=== PATIENT | male | born 1960 | race Caucasian/White ===

== ENCOUNTER → 2017-07-09 | Outpatient (CLI) | payer OTHER ==
[~2017-07-09] MED LIST: ARTIOIN OP; ASPI325T45 PO; CYCL10TA6 PO; LABE100T16 PO; LOSA1TAB38 PO; PRED10TA PO; VALA1TAB PO
[2017-07-09 11:55] LABS: MEAN CELL VOLUME 88.1 fL (80-100); MEAN CORPUSCULAR HEMOGLOBIN 33.3 pg (25-34); MEAN CORPUSCULAR HGB CONC 37.8 g/dl (32-36); MEAN PLATELET VOLUME 9.9 fL (7.4-10.4); PLATELET COUNT 195 K/uL (130-400); RED BLOOD COUNT 4.54 M/uL (4.7-6.1); WHITE BLOOD COUNT 7.29 K/uL (4.8-10.8)
[2017-07-09 12:22] LABS: BLOOD UREA NITROGEN 20 mg/dl (7-18); BUN/CREATININE RATIO 18.6 (10-20); CALCIUM 8.5 mg/dl (8.5-10.1); CARBON DIOXIDE 28 mmol/L (21-32); CHLORIDE 102 mmol/L (98-107); GLUCOSE 118 mg/dl (70-99); POTASSIUM 3.5 mmol/L (3.5-5.1); SODIUM 137 mmol/L (136-145)
[2017-07-09 12:23] LABS: ESTIMATED AVERAGE GLUCOSE 105 mg/dl; HA1C FLAG Normal (Normal)
[2017-07-09 12:25] LABS: CHOLESTEROL 177 mg/dl (0-200); CHOLESTEROL/HDL RATIO 4.5; HDL CHOLESTEROL 39 mg/dl; LDL CHOLESTEROL CALCULATED 93 mg/dl; TRIGLYCERIDES 224 mg/dl (0-150); VERY LOW DENSITY LIPOPROT CALC 45 mg/dl
== END | disposition home or self-care (01) ==
LOC: C.LABPBG 08:55
PROVIDERS: ATTEND Family Medicine
DX: I10 Essential (primary) hypertension (principal); Z13.220 Encounter for screening for lipoid disorders; Z11.59 Encounter for screening for other viral diseases; Z13.1 Encounter for screening for diabetes mellitus

== ENCOUNTER → 2017-07-21 | Outpatient (CLI) | payer OTHER ==
[2017-07-21 13:19] LABS: THYROID STIMULATING HORMONE 2.8 uIu/ml (0.300-4.500)
[2017-07-22 14:13] LABS: MICROSOMAL AB 8 IU/ML (<9)
== END | disposition home or self-care (01) ==
LOC: C.LABPBG 10:12
PROVIDERS: ATTEND Family Medicine
DX: R94.6 Abnormal results of thyroid function studies (principal)

== ENCOUNTER → 2017-10-21 | Outpatient (CLI) | payer OTHER ==
[2017-10-21 13:55] LABS: BLOOD UREA NITROGEN 14 mg/dl (7-18); CALCIUM 9.2 mg/dl (8.5-10.1); CARBON DIOXIDE 30 mmol/L (21-32); CHOLESTEROL 205 mg/dl (0-200); CREATININE 1.14 mg/dl (0.60-1.40); GLUCOSE 114 mg/dl (70-99); POTASSIUM 3.6 mmol/L (3.5-5.1); SODIUM 137 mmol/L (136-145)
[2017-10-21 14:06] LABS: LDL CHOLESTEROL CALCULATED 123 mg/dl
== END | disposition home or self-care (01) ==
LOC: C.LABPBG 10:41
PROVIDERS: ATTEND Family Medicine
DX: R94.6 Abnormal results of thyroid function studies (principal); E78.5 Hyperlipidemia, unspecified; I10 Essential (primary) hypertension

== ENCOUNTER 2017-11-18 17:15 | Emergency (ER) | payer OTHER ==
[~2017-11-18] VITALS: Ht 188 cm; Wt 125.1 kg
[~2017-11-18 17:15] MED LIST changes: -ASPI325T45 PO
[2017-11-18 17:22] VITALS: Ht 188 cm; Wt 125.1 kg
[2017-11-18] MEDS ORDERED: ACETAMINOPHEN 500 MG TAB PO STA (17:47)
[2017-11-18] MEDS ORDERED: SODIUM CHLORIDE 0.9% 1000ML 1,000 ML IV STA ×2 (17:47→19:57)
[2017-11-18] MEDS ORDERED: KETOROLAC TROMETHAMINE 30 MG/ML VIAL IV STA (17:47)
--- NOTE | 2017-11-18 18:17 | DIAGNOSTIC IMAGING REPORT ---
SINGLE VIEW CHEST CLINICAL HISTORY: Cough and fever. FINDINGS: An AP, portable, upright chest radiograph is compared to study dated 12/29/2006 and correlated with chest CT dated 02/15/2011. The cardiomediastinal silhouette is unremarkable. There is mild chronic elevation of the right hemidiaphragm with associated bibasilar atelectasis. The lungs and pleural spaces are otherwise clear. No pneumothorax is seen. The bony thorax is grossly intact. IMPRESSION: No acute cardiopulmonary abnormality. Electronically signed by: Sudheer Slater M.D. 11/18/2017 6:15 PM Dictated Date/Time: 11/18/2017 6:07 PM
[2017-11-18] MEDS ORDERED: LEVO50TA6 PO (18:23)
[2017-11-18] MEDS ORDERED: HYZ/10015 PO (18:23)
[2017-11-18] MEDS ORDERED: LBT100 PO (18:23)
[2017-11-18] MEDS ORDERED: FLX10 PO (18:23)
[2017-11-18 18:43] LABS: BASO % 0.4 %; BASO ABS # 0.03 K/uL (0-0.2); EOS % 0.6 %; EOS ABS # 0.05 K/uL (0-0.5); HEMATOCRIT 40.5 % (42-52); IG# 0.03 K/uL (0.00-0.02); LYMPH % 8.7 %; LYMPH ABS # 0.72 K/uL (1.2-3.4); MEAN CELL VOLUME 88.4 fL (80-100); MEAN CORPUSCULAR HEMOGLOBIN 32.8 pg (25-34); MEAN PLATELET VOLUME 9.3 fL (7.4-10.4); MONO ABS # 0.75 K/uL (0.11-0.59); NEUT % 80.9 %; NEUT ABS # 6.72 K/uL (1.4-6.5); PLATELET COUNT 172 K/uL (130-400); RED CELL DISTRIBUTION WIDTH CV 12.8 % (11.5-14.5); RED CELL DISTRIBUTION WIDTH SD 40.7 fL (36.4-46.3)
[2017-11-18 19:06] LABS: ALBUMIN 3.9 gm/dl (3.4-5.0); ALT/SGPT 38 U/L (12-78); AST/SGOT 25 U/L (15-37); BLOOD UREA NITROGEN 15 mg/dl (7-18); CALCIUM 8.6 mg/dl (8.5-10.1); CARBON DIOXIDE 29 mmol/L (21-32); CREATININE 1.36 mg/dl (0.60-1.40); GLUCOSE 118 mg/dl (70-99); POTASSIUM 3.4 mmol/L (3.5-5.1); SODIUM 135 mmol/L (136-145)
[2017-11-18 19:10] LABS: ALKALINE PHOSPHATASE 107 U/L (45-117); TOTAL PROTEIN 7.3 gm/dl (6.4-8.2)
[2017-11-18 19:24] LABS: INFLUENZA B ANTIGEN Neg for Influ B (NEG)
[2017-11-18 19:52] VITALS: TEMP 37.9
[2017-11-18] MEDS ORDERED: OSELTAMIVIR PHOSPHATE 75 MG CAP PO STA (19:57)
[2017-11-18 20:53] VITALS: BP 121/68; PULSE 80; O2SAT 95
[2017-11-18] MEDS ORDERED: HYCODAN 60ML BOTTLE HOMEPACK PO ONE (21:00)
[2017-11-18] MEDS ORDERED: OSEL75CA12 PO (21:01)
[2017-11-18] MEDS ORDERED: HYDR5SYP11 PO (21:01)
--- NOTE | 2017-11-18 21:04 | EMERGENCY ROOM VISIT NOTE ---
History First contact with patient: 17:29 Chief Complaint: FLU LIKE SX Stated Complaint: FLU History of Present Illness The patient is a 57 year old male who presents to the Emergency Room with complaints of flulike symptoms. The patient states that he has had sore throat , weakness, nausea, decreased appetite, cough, and bodyaches for the past 4-5 days. The patient reports he has been having sharp pains in his head when he is coughing. He has been slightly dizzy when standing up. He has been taking ibuprofen, Tylenol, pepto-bismol and Robitussin without relief. The patient has not taken any medications since this morning. He rates his discomfort a 1/ 10. He feels he has been eating and drinking normally. He denies nausea/ vomiting, diarrhea, neck pain/stiffness. Review of Systems A complete 10 point review of systems was reviewed with the patient with pertinent positives and negatives as per history of present illness. All else were negative. Past Medical/Surgical History Medical Problems: (1) Sutherland's palsy (2) Hypertension Surgical Problems: (1) Hx of cholecystectomy Family History FH: heart disease FHx: cancer Hypertension Social History Smoking Status: Never Smoker Marital Status: Housing Status: lives with family Occupation Status: retired Current/Historical Medications Scheduled Aspirin (Aspirin), 325 MG PO DAILY Hctz/Losartan (Hyzaar 25MG/100MG), 1 TAB PO DAILY Hydrocodone W/ Homatropine (Hycodan 5/1.5MG 5 Ml), 5 ML PO Q4H Labetalol HCl (Labetalol HCl), 100 MG PO BID Levothyroxine Sodium (Levothyroxine Sodium), 50 MCG PO DAILY Oseltamivir (Tamiflu), 75 MG PO BID Scheduled PRN Cyclobenzaprine HCl (Cyclobenzaprine HCl), 10 MG PO TID PRN for Muscle Spasm Physical Exam Vital Signs Date Time Temp Pulse Resp B/P (MAP) Pulse Ox O2 Delivery O2 Flow Rate FiO2 11/18/17 20:53 80 19 121/68 95 Room Air 11/18/17 19:52 37.9 86 18 95/61 95 Room Air 11/18/17 17:22 39.1 109 20 106/70 95 Room Air Physical Exam VITALS: Vitals are noted on the nurse's note and reviewed by myself. Vital signs stable. GENERAL: This is a 57-year-old, in no acute distress but uncomfortable appearing , nondiaphoretic, well-developed well-nourished. SKIN: The skin was without rashes. EARS: External auditory canals clear, tympanic membranes pearly brock without erythema or effusion bilaterally. EYES: Pupils equal round and reactive to light and accommodation. MOUTH: Mucous membranes moist. Tonsils are not enlarged. Pharynx without erythema or exudate. NECK: Supple without nuchal rigidity. No lymphadenopathy. No meningismus. HEART: Regular rate and rhythm without murmurs gallops or rubs. LUNGS: Clear to auscultation bilaterally without wheezes, rales or rhonchi. No retractions or accessory muscle use. ABDOMEN: Positive bowel sounds x 4. Soft, nontender to palpation. NEURO: Patient was alert and oriented to person place and time. Medical Decision & Procedures ER Provider Diagnostic Interpretation: SINGLE VIEW CHEST CLINICAL HISTORY: Cough and fever. FINDINGS: An AP, portable, upright chest radiograph is compared to study dated 12/29/2006 and correlated with chest CT dated 02/15/2011. The cardiomediastinal silhouette is unremarkable. There is mild chronic elevation of the right hemidiaphragm with associated bibasilar atelectasis. The lungs and pleural spaces are otherwise clear. No pneumothorax is seen. The bony thorax is grossly intact. IMPRESSION: No acute cardiopulmonary abnormality. Laboratory Results 11/18/17 18:04 Red Blood Count 4.58, Mean Corpuscular Volume 88.4, Mean Corpuscular Hemoglobin 32.8, Mean Corpuscular Hemoglobin Concent 37.0, Mean Platelet Volume 9.3, Neutrophils (%) (Auto) 80.9, Lymphocytes (%) (Auto) 8.7, Monocytes (%) (Auto) 9.0, Eosinophils (%) (Auto) 0.6, Basophils (%) (Auto) 0.4, Neutrophils # (Auto) 6.72, Lymphocytes # (Auto) 0.72, Monocytes # (Auto) 0.75, Eosinophils # (Auto) 0.05, Basophils # (Auto) 0.03 11/18/17 18:04 Test 11/18/17 17:55 11/18/17 18:04 Influenza Type A Antigen Neg for Influ A (NEG) Influenza Type B Antigen Neg for Influ B (NEG) White Blood Count 8.30 K/uL (4.8-10.8) Red Blood Count 4.58 M/uL (4.7-6.1) Hemoglobin 15.0 g/dL (14.0-18.0) Hematocrit 40.5 % (42-52) Mean Corpuscular Volume 88.4 fL (80-100) Mean Corpuscular Hemoglobin 32.8 pg (25-34) Mean Corpuscular Hemoglobin Concent 37.0 g/dl (32-36) Platelet Count 172 K/uL (130-400) Mean Platelet Volume 9.3 fL (7.4-10.4) Neutrophils (%) (Auto) 80.9 % Lymphocytes (%) (Auto) 8.7 % Monocytes (%) (Auto) 9.0 % Eosinophils (%) (Auto) 0.6 % Basophils (%) (Auto) 0.4 % Neutrophils # (Auto) 6.72 K/uL (1.4-6.5) Lymphocytes # (Auto) 0.72 K/uL (1.2-3.4) Monocytes # (Auto) 0.75 K/uL (0.11-0.59) Eosinophils # (Auto) 0.05 K/uL (0-0.5) Basophils # (Auto) 0.03 K/uL (0-0.2) RDW Standard Deviation 40.7 fL (36.4-46.3) RDW Coefficient of Variation 12.8 % (11.5-14.5) Immature Granulocyte % (Auto) 0.4 % Immature Granulocyte # (Auto) 0.03 K/uL (0.00-0.02) Anion Gap 8.0 mmol/L (3-11) Est Creatinine Clear Calc Drug Dose 86.3 ml/min Estimated GFR () 67.4 Estimated GFR (Non- 58.2 BUN/Creatinine Ratio 11.3 (10-20) Calcium Level 8.6 mg/dl (8.5-10.1) Total Bilirubin 1.4 mg/dl (0.2-1) Aspartate Amino Transf (AST/SGOT) 25 U/L (15-37) Alanine Aminotransferase (ALT/SGPT) 38 U/L (12-78) Alkaline Phosphatase 107 U/L (45-117) Troponin I < 0.015 ng/ml (0-0.045) Total Protein 7.3 gm/dl (6.4-8.2) Albumin 3.9 gm/dl (3.4-5.0) Globulin 3.4 gm/dl (2.5-4.0) Albumin/Globulin Ratio 1.1 (0.9-2) Medications Administered Medications (Trade) Dose Ordered Sig/Cruz Route Start Time Stop Time Status Last Admin Dose Admin Sodium Chloride 1,000 ml @ 999 mls/hr Q1H1M STAT IV 11/18/17 17:47 11/18/17 18:47 DC 11/18/17 18:15 999 MLS/HR Ketorolac Tromethamine (Toradol Inj) 30 mg NOW STAT IV 11/18/17 17:47 11/18/17 17:51 DC 11/18/17 18:15 30 MG Acetaminophen (Tylenol Tab) 1,000 mg NOW STAT PO 11/18/17 17:47 11/18/17 17:51 DC 11/18/17 18:15 1,000 MG Sodium Chloride 1,000 ml @ 999 mls/hr Q1H1M STAT IV 11/18/17 19:57 11/18/17 20:57 DC 11/18/17 19:55 999 MLS/HR Oseltamivir Phosphate (Tamiflu Cap) 75 mg NOW STAT PO 11/18/17 19:57 11/18/17 19:58 DC 11/18/17 20:10 75 MG Hydrocodone Bit/ Homatropine Methylb (Hycodan Elix Homepack 5/1.5MG/ 5ML) 1 homepack UD ONCE PO 11/18/17 21:00 11/18/17 21:01 DC 11/18/17 21:00 1 HOMEPACK Medical Decision Differential diagnosis includes influenza, pneumonia, viral illness, strep pharyngitis, mononucleosis, among others. The patient is a 57-year-old male who presents today complaining of flulike symptoms. Labs revealed no leukocytosis, anemia or concerning electrolyte abnormalities. Chest x-ray showed no evidence of pneumonia. Rapid influenza testing was negative, however with clinical symptoms and prevalence in the community, I did offer the patient prescription of Tamiflu which he accepted. He was treated with Tylenol, Toradol and 2 L normal saline solution with improvement of vital signs and symptomatic improvement. Plan of care was discussed with the patient and . He will follow-up with the primary care provider as needed or return here for any worsening or new/concerning symptoms. Based on the patient's presentation and work up, I feel the patient is stable for outpatient treatment. The patient was educated to return to the emergency department for any worsening of their current condition or new/concerning symptoms. He will follow up with his PCP. Medication Reconcilliation Current Medication List: was personally reviewed by me Blood Pressure Screening Patient's blood pressure: Normal blood pressure Impression Primary Impression: Influenza-like symptoms Departure Information Dispostion Home / Self-Care Condition GOOD Prescriptions Hydrocodone W/ Homatropine (HYCODAN 5/1.5MG 5 ML) 1 Syp Syp 5 ML PO Q4H, #60 ML Prov: Belkis Mendoza PA-C 11/18/17 Oseltamivir (Tamiflu) 75 Mg Cap 75 MG PO BID for 5 Days, #9 CAP Prov: Belkis Mendoza PA-C 11/18/17 Referrals Karime Hwang DO (PCP) Patient Instructions My [facility] Additional Instructions Tamiflu as prescribed. Hycodan cough syrup as needed for severe cough. This is a narcotic medication and may make you drowsy. Do not drink or drive while taking this medication. For pain/fever control, you can use the following [id number] medicines ( if >12 yo): - Regular strength (325mg/tab) Tylenol (acetaminophen) 2 tabs every 4-6 hours as needed. Do not exceed 12 tablets in a 24 hour period. Avoid taking more than 4 grams (4000 mg) of Tylenol per day. This includes any other sources of acetaminophen you may take on a regular basis. - Regular strength (200 mg/tab) Advil (ibuprofen) 3-4 tabs every 4-6 hours as needed. Do not exceed a dose of 3200 mg per day. Rest and drink plenty of fluids. Follow-up with your primary care provider this week for a recheck. Return to the emergency department with any worsening or new/concerning symptoms.
[2017-11-18] MEDS ORDERED: ASPI325T45 PO (22:33)
== END 2017-11-18 21:11 | disposition home or self-care (01) ==
LOC: C.EDB 17:17
DX: J02.9 Acute pharyngitis, unspecified (principal); R53.1 Weakness; R11.0 Nausea; R63.0 Anorexia; R05 Cough; R42 Dizziness and giddiness; G51.0 Bell's palsy; I10 Essential (primary) hypertension; Z90.49 Acquired absence of other specified parts of digestive tract; Z80.9 Family history of malignant neoplasm, unspecified; Z82.49 Family history of ischemic heart disease and other diseases of the circulatory system; Z79.82 Long term (current) use of aspirin; Z79.899 Other long term (current) drug therapy

== ENCOUNTER 2017-11-23 12:27 | Emergency (ER) | payer OTHER ==
[~2017-11-23] VITALS: Ht 188 cm; Wt 122.6 kg
[~2017-11-23 12:27] MED LIST changes: -ARTIOIN OP; +ASPI325T45 PO; -CYCL10TA6 PO; +FLX10 PO; +HYDR5SYP11 PO; +HYZ/10015 PO; -LABE100T16 PO; +LBT100 PO; +LEVO50TA6 PO; -LOSA1TAB38 PO; +OSEL75CA12 PO; -PRED10TA PO; -VALA1TAB PO
[2017-11-23 12:30] VITALS: TEMP 37.5; Ht 188 cm; Wt 122.6 kg
[2017-11-23] MEDS ORDERED: ALBUT/IPRATROP 3MG/0.5MG NEB 3 ML VIAL INH STA (13:01)
[2017-11-23] MEDS ORDERED: LORAZEPAM 2 MG/ML 1 ML VIAL IV STA (13:05)
[2017-11-23 13:11] LABS: BASO % 0.2 %; BASO ABS # 0.02 K/uL (0-0.2); EOS % 0.7 %; EOS ABS # 0.09 K/uL (0-0.5); HEMOGLOBIN 14.4 g/dL (14.0-18.0); IG# 0.05 K/uL (0.00-0.02); LYMPH % 7.3 %; MEAN CELL VOLUME 88.8 fL (80-100); MEAN CORPUSCULAR HEMOGLOBIN 33.6 pg (25-34); MEAN CORPUSCULAR HGB CONC 37.9 g/dl (32-36); MEAN PLATELET VOLUME 9.4 fL (7.4-10.4); MONO % 9.6 %; MONO ABS # 1.19 K/uL (0.11-0.59); NEUT % 81.8 %; NEUT ABS # 10.16 K/uL (1.4-6.5); PLATELET COUNT 210 K/uL (130-400); RED CELL DISTRIBUTION WIDTH CV 12.4 % (11.5-14.5); RED CELL DISTRIBUTION WIDTH SD 39.7 fL (36.4-46.3); WHITE BLOOD COUNT 12.41 K/uL (4.8-10.8)
[2017-11-23 13:20] LABS: CALCIUM 8.8 mg/dl (8.5-10.1); CREATININE 1.25 mg/dl (0.60-1.40); POTASSIUM 3.5 mmol/L (3.5-5.1)
--- NOTE | 2017-11-23 13:51 | DIAGNOSTIC IMAGING REPORT ---
CHEST 2 VIEWS ROUTINE CLINICAL HISTORY: Cough and shortness of breath COMPARISON STUDY: The 2017 FINDINGS: The cardiac and mediastinal contours are normal. There is no evidence of focal pulmonary consolidation. There is no evidence of failure. No pleural effusions are visualized.[ IMPRESSION: No active disease in the chest. Electronically signed by: Alo Thao M.D. 11/23/2017 1:50 PM Dictated Date/Time: 11/23/2017 1:49 PM
--- NOTE | 2017-11-23 14:24 | EMERGENCY ROOM VISIT NOTE ---
ED Visit Note First contact with patient: 12:51 The patient was seen and examined with Alis Mendosa [facility]. I agree with the history, physical and findings. Please see the note for disposition and details.
[2017-11-23] MEDS ORDERED: ACET-1256 PO (14:59)
[2017-11-23] MEDS ORDERED: PSEU30TA3 PO (14:59)
[2017-11-23] MEDS ORDERED: ALBINS/ INH (15:17)
[2017-11-23] MEDS ORDERED: AZITTAB PO (15:17)
[2017-11-23] MEDS ORDERED: METH4PAK PO (15:17)
--- NOTE | 2017-11-23 15:18 | EMERGENCY ROOM VISIT NOTE ---
History First contact with patient: 12:51 Chief Complaint: SHORTNESS OF BREATH Stated Complaint: CANT BREATH,WEAK Nursing Triage Summary: pt reports flu like symptoms. Seen here on Friday for the same. negative flu, was prescribed Tamiflu. productive cough- thick green sputum, nasal congestion, SOB, anxiety. pt also reports a smell of ammonia. Tylenol at 0800 History of Present Illness The patient is a 57 year old male who presents to the Emergency Room with complaints of worsening cough and shortness of breath. The patient states that his symptoms started 1 week ago. He was seen here on Friday for his symptoms. At that time his flu was negative but they still placed him on Tamiflu. He had a chest x-ray which did not reveal pneumonia. He states since that time he continues to run a low-grade fever 100-101 which comes down with Tylenol and ibuprofen. He continues to cough and feels more short of breath. The patient states that he gets very anxious due to the symptoms. He states that he watched his father be very short of breath for the last 36 hours of his life. The patient denies any chest pain, jaw pain or arm pain. He states he is coughing up thick green sputum. Review of Systems 10 system review was performed and was negative unless stated otherwise history of present illness. Past Medical/Surgical History Medical Problems: (1) Sutherland's palsy (2) Hypertension Surgical Problems: (1) Hx of cholecystectomy Family History FH: heart disease FHx: cancer Hypertension Social History Smoking Status: Never Smoker Marital Status: Housing Status: lives with family Occupation Status: retired Current/Historical Medications Scheduled Aspirin (Aspirin), 325 MG PO Q2D Hctz/Losartan (Hyzaar 25MG/100MG), 1 TAB PO DAILY Hydrocodone W/ Homatropine (Hycodan 5/1.5MG 5 Ml), 5 ML PO Q4H Labetalol HCl (Labetalol HCl), 200 MG PO DAILY Levothyroxine Sodium (Levothyroxine Sodium), 50 MCG PO DAILY Oseltamivir (Tamiflu), 75 MG PO BID Pseudoephedrine Hcl (Sudafed Nasal Decongestan), 90 MG PO Q4H Scheduled PRN Acetaminophen (Tylenol), 1,000 MG PO Q8H PRN for Pain or Fever Cyclobenzaprine HCl (Cyclobenzaprine HCl), 10 MG PO TID PRN for Muscle Spasm Physical Exam Vital Signs Date Time Temp Pulse Resp B/P (MAP) Pulse Ox O2 Delivery O2 Flow Rate FiO2 11/23/17 14:23 88 Room Air 11/23/17 14:06 142/88 11/23/17 13:57 91 19 92 11/23/17 13:27 88 7 100 11/23/17 12:59 89 11/23/17 12:57 102 21 95 11/23/17 12:49 118/105 11/23/17 12:36 98 Room Air 11/23/17 12:30 37.5 90 24 123/76 95 Room Air Physical Exam PHYSICAL EXAM: Vital Signs were reviewed: Temperature 37.5, blood pressure 123/ 76, pulse 90, respiratory rate 24 reviewed Nurse's notes and agree. Oxygen saturation is 95 % on room air which is normal . GENERAL: 57-year-old male appears in no acute distress. MENTAL STATUS: Alert, oriented, coherent. EARS: Canals clear. TMs good light reflex, no erythema or fluid level noted. NOSE: Nasal mucosa with moderate erythema engorgement. PHARYNX: No erythema, no edema noted. No exudate noted. Airway is adequate. NECK: Supple, non-tender. No lymphadenopathy noted. LUNGS: Crackles noted at both bases, right greater than left. Fair air exchange bilaterally. No wheezing noted. CARDIAC: Regular rate and rhythm without murmur. SKIN: No rashes noted. Medical Decision & Procedures ER Provider Diagnostic Interpretation: CHEST 2 VIEWS ROUTINE CLINICAL HISTORY: Cough and shortness of breath COMPARISON STUDY: The 2017 FINDINGS: The cardiac and mediastinal contours are normal. There is no evidence of focal pulmonary consolidation. There is no evidence of failure. No pleural effusions are visualized.[ IMPRESSION: No active disease in the chest. Electronically signed by: Alo Thao M.D. 11/23/2017 1:50 PM Laboratory Results 11/23/17 12:48 Red Blood Count 4.28, Mean Corpuscular Volume 88.8, Mean Corpuscular Hemoglobin 33.6, Mean Corpuscular Hemoglobin Concent 37.9, Mean Platelet Volume 9.4, Neutrophils (%) (Auto) 81.8, Lymphocytes (%) (Auto) 7.3, Monocytes (%) (Auto) 9.6, Eosinophils (%) (Auto) 0.7, Basophils (%) (Auto) 0.2, Neutrophils # (Auto) 10.16, Lymphocytes # (Auto) 0.90, Monocytes # (Auto) 1.19, Eosinophils # (Auto) 0.09, Basophils # (Auto) 0.02 11/23/17 12:48 Test 11/23/17 12:48 White Blood Count 12.41 K/uL (4.8-10.8) Red Blood Count 4.28 M/uL (4.7-6.1) Hemoglobin 14.4 g/dL (14.0-18.0) Hematocrit 38.0 % (42-52) Mean Corpuscular Volume 88.8 fL (80-100) Mean Corpuscular Hemoglobin 33.6 pg (25-34) Mean Corpuscular Hemoglobin Concent 37.9 g/dl (32-36) Platelet Count 210 K/uL (130-400) Mean Platelet Volume 9.4 fL (7.4-10.4) Neutrophils (%) (Auto) 81.8 % Lymphocytes (%) (Auto) 7.3 % Monocytes (%) (Auto) 9.6 % Eosinophils (%) (Auto) 0.7 % Basophils (%) (Auto) 0.2 % Neutrophils # (Auto) 10.16 K/uL (1.4-6.5) Lymphocytes # (Auto) 0.90 K/uL (1.2-3.4) Monocytes # (Auto) 1.19 K/uL (0.11-0.59) Eosinophils # (Auto) 0.09 K/uL (0-0.5) Basophils # (Auto) 0.02 K/uL (0-0.2) RDW Standard Deviation 39.7 fL (36.4-46.3) RDW Coefficient of Variation 12.4 % (11.5-14.5) Immature Granulocyte % (Auto) 0.4 % Immature Granulocyte # (Auto) 0.05 K/uL (0.00-0.02) Anion Gap 5.0 mmol/L (3-11) Est Creatinine Clear Calc Drug Dose 92.9 ml/min Estimated GFR () 74.7 Estimated GFR (Non- 64.4 BUN/Creatinine Ratio 8.3 (10-20) Calcium Level 8.8 mg/dl (8.5-10.1) Medications Administered Medications (Trade) Dose Ordered Sig/Cruz Route Start Time Stop Time Status Last Admin Dose Admin Albuterol/ Ipratropium (Duoneb) 3 ml NOW STAT INH 11/23/17 13:01 11/23/17 13:03 DC 11/23/17 13:26 3 ML Lorazepam (Ativan Inj) 1 mg NOW STAT IV 11/23/17 13:05 11/23/17 13:06 DC 11/23/17 13:20 1 MG ED Course The patient was evaluated. The patient's EMR medication list were reviewed. The patient was placed on a monitor. IV access was obtained. The patient was given Ativan 1 mg IV for his anxiety. He was given a DuoNeb. CBC and differential, renal profile, blood cultures 2 were ordered. Chest x-ray was ordered and interpreted by the radiologist and myself as above without any acute findings. The patient's labs are reviewed. The patient's white count was slightly elevated at 12,000 otherwise unremarkable. Blood cultures are still pending. Patient was reevaluated informed of all findings. After he received a DuoNeb and the Ativan his oxygen dropped to 88% on room air. He was placed on 3 L of oxygen. After approximately 1 hour he was taken off the oxygen and he maintained an O2 sat of 93% even with ambulation. The patient was discharged home in stable condition. Medical Decision Differential diagnosis include influenza, bronchitis, URI, pneumonia [place] Drug Monitoring Program Search Results: patient reviewed within database Medication Reconcilliation Current Medication List: was personally reviewed by tn Blood Pressure Screening Patient's blood pressure: Normal blood pressure Impression Primary Impression: Acute bronchitis Departure Information Dispostion Home / Self-Care Condition GOOD Prescriptions Albuterol Sulf (PROVENTIL 0.083% 2.5MG/3ML) 2.5 Mg/3 Ml Nebu 2.5 MG INH QID for 7 Days, #28 EA Prov: Basia Mendosa PA-C 11/23/17 Methylprednisolone (MEDROL DOSEPAK) 4 Mg Anand 0 PO DAILY, #1 PKT Prov: Basia Mendosa PA-C 11/23/17 Azithromycin (ZITHROMAX Z-ANAND) 250 Mg Tab 0 PO UD, #1 PKT Prov: Basia Mendosa PA-C 11/23/17 Referrals Karime Hwang DO (PCP) Forms HOME CARE DOCUMENTATION FORM, IMPORTANT VISIT INFORMATION Patient Instructions Bronchitis Acute, [facility] Additional Instructions Tylenol and/or ibuprofen as needed for fever and body aches. Push fluids, rest. Take Zithromax as prescribed. Take Medrol Dosepak as prescribed. Use the albuterol nebulizer 4 times a day until symptoms improve. Follow-up with your family doctor early next week for recheck. If symptoms worsen in the interim, return to ER. Problem Qualifiers Primary Impression: Acute bronchitis Bronchitis organism: unspecified organism Qualified Codes: J20.9 - Acute bronchitis, unspecified
[2017-11-23 15:34] VITALS: BP 140/79; PULSE 91; O2SAT 94
== END 2017-11-23 15:35 | disposition home or self-care (01) ==
LOC: C.EDB 12:28 → C.EDA 15:35
DX: J20.9 Acute bronchitis, unspecified (principal); F41.9 Anxiety disorder, unspecified; I10 Essential (primary) hypertension; G51.0 Bell's palsy; Z90.49 Acquired absence of other specified parts of digestive tract; Z79.82 Long term (current) use of aspirin; Z82.49 Family history of ischemic heart disease and other diseases of the circulatory system

== ENCOUNTER → 2018-04-20 | Outpatient (CLI) | payer OTHER ==
[~2018-04-20] MED LIST changes: +ACET-1256 PO; +ASPECOTC PO; -ASPI325T45 PO; -HYDR5SYP11 PO; -OSEL75CA12 PO; +PSEU30TA3 PO
[2018-04-20 13:16] LABS: BASO % 0.6 %; BASO ABS # 0.04 K/uL (0-0.2); EOS % 1.4 %; EOS ABS # 0.09 K/uL (0-0.5); HEMATOCRIT 42.1 % (42-52); HEMOGLOBIN 15.2 g/dL (14.0-18.0); IG# 0.02 K/uL (0.00-0.02); LYMPH % 21.2 %; LYMPH ABS # 1.41 K/uL (1.2-3.4); MEAN CELL VOLUME 89.2 fL (80-100); MEAN CORPUSCULAR HEMOGLOBIN 32.2 pg (25-34); MEAN CORPUSCULAR HGB CONC 36.1 g/dl (32-36); MEAN PLATELET VOLUME 9.9 fL (7.4-10.4); MONO % 7.5 %; PLATELET COUNT 212 K/uL (130-400); RED CELL DISTRIBUTION WIDTH CV 12.5 % (11.5-14.5); RED CELL DISTRIBUTION WIDTH SD 39.9 fL (36.4-46.3); WHITE BLOOD COUNT 6.66 K/uL (4.8-10.8)
[2018-04-20 17:01] LABS: BLOOD UREA NITROGEN 17 mg/dl (7-18); CALCIUM 9.1 mg/dl (8.5-10.1); CARBON DIOXIDE 32 mmol/L (21-32); CHOLESTEROL 175 mg/dl (0-200); CREATININE 1.15 mg/dl (0.60-1.40); GLUCOSE 113 mg/dl (70-99); LDL CHOLESTEROL CALCULATED 92 mg/dl; POTASSIUM 3.6 mmol/L (3.5-5.1); SODIUM 138 mmol/L (136-145)
== END | disposition home or self-care (01) ==
LOC: C.LABPBG 10:41
PROVIDERS: ATTEND Family Medicine
DX: I10 Essential (primary) hypertension (principal); E78.5 Hyperlipidemia, unspecified; R42 Dizziness and giddiness